=== PATIENT | male | born 1985 | race Caucasian/White ===

== ENCOUNTER → 2018-01-12 | Outpatient (CLI) | payer OTHER ==
[~2018-01-12] MED LIST: LIDOCAINE 1% MDV 20ML VIAL As Ordered
== END ==
LOC: M RADPRO 12:32
DX: R22.42 Localized swelling, mass and lump, left lower limb (principal); F17.203 Nicotine dependence unspecified, with withdrawal
CPT/HCPCS: 10022

== ENCOUNTER → 2020-05-31 | Outpatient (CLI) | payer OTHER ==
[~2020-05-31] MED LIST changes: -LIDOCAINE 1% MDV 20ML VIAL As Ordered; +XARE20TA PO
--- NOTE | 2020-05-31 19:19 | REP ---
INDICATION: HX DVT GROIN COMPARISON: None. TECHNIQUE: Irving scale and color Doppler evaluation using linear high frequency transducer. FINDINGS: Ultrasound examination of the left lower extremity deep venous structures from the common femoral vein to the popliteal vein demonstrates normal compressibility and flow. There is no evidence for deep venous thrombosis. A 2.6 x 1.9 x 1.9 cm cystic masses identified in the left groin which partially compresses the adjacent common femoral vein. IMPRESSION: No evidence for deep venous thrombosis. Cystic lesion in the left groin with mild mass effect on the adjacent common femoral vein. <Electronically signed by Davin Lucas > 05/31/200
== END ==
LOC: M RAD 11:01
PROVIDERS: ATTEND Internal Medicine Hematology & Oncology
DX: Z86.718 Personal history of other venous thrombosis and embolism (principal); D36.7 Benign neoplasm of other specified sites

== ENCOUNTER 2023-07-01 10:12 | Emergency (ER) | payer OTHER ==
[~2023-07-01] VITALS: Ht 185.4 cm; Wt 114.1 kg
[~2023-07-01 10:12] MED LIST changes: +TIZA10TA PO; +XARE15TA PO
[2023-07-01] MEDS: ACETAMINOPHEN 325 MG TAB PO ONE (12:22)
[2023-07-01 13:48] LABS: Trichomonas vaginalis (AMP) NOT DETECTED (NEGATIVE)
[2023-07-01] MEDS ORDERED: HOME MED LIST COMPLETE! XX SCH (13:55)
[2023-07-01] MEDS ORDERED: XARE20TA PO (13:55)
[2023-07-01 14:12] LABS: GC DNA AMPLIFICATION NEGATIVE (NEGATIVE)
[2023-07-01 14:35] VITALS: BP 137/85; TEMP 97.6; O2SAT 97
[2023-07-01] MEDS ORDERED: LEVO1TAB39 PO (14:38)
[2023-07-01] MEDS: LevoFLOXacin 500 MG TABLET PO ONE (14:39)
== END 2023-07-01 14:46 | disposition home or self-care (01) ==
LOC: M ED 10:12
DX: N45.1 Epididymitis (principal); N45.2 Orchitis; Z86.718 Personal history of other venous thrombosis and embolism; Z79.01 Long term (current) use of anticoagulants; Z79.899 Other long term (current) drug therapy